=== PATIENT | female | born 1945 | race Caucasian/White ===

== ENCOUNTER 2020-05-23 15:31 | Outpatient (CLI) | payer MEDICARE, SELFPAY ==
--- NOTE | ~2020-05-23 | US_ITS ---
EXAMINATION: US venous doppler LE RT EXAM DATE: 05/23/2020 16:05 INDICATION: Right leg pain. TECHNIQUE: Multiple grayscale, color flow and Doppler images of the right lower extremity deep venous system were obtained and reviewed. There is no prior study for comparison. FINDINGS: The right common femoral, femoral and profunda veins demonstrate normal color flow, respira tory variation, augmentation and compressibility. Compressibility, color flow confirmed within the r ight popliteal, posterior tibial, peroneal, and greater saphenous veins. IMPRESSION: 1. No right lower extremity deep venous thrombosis. Reviewed, dictated and finalized at location A.
== END 2020-05-23 15:32 | disposition home or self-care (01) ==
PROVIDERS: PCP Internal Medicine; Visit Provider Physician Assistant
DX: M79.604 Pain in right leg (principal)
CPT/HCPCS: 93971

== ENCOUNTER 2020-05-29 06:39 | Outpatient (CLI) | payer MEDICARE, SELFPAY ==
--- NOTE | ~2020-05-29 | CT_ITS ---
EXAMINATION: CT brain wo/w con DATE: 05/29/2020 07:09 INDICATION: Headache TECHNIQUE: Computed tomography (CT) of the head was performed without and with 75 mL Omnipaque-350 in travenous contrast. Sagittal and coronal reconstructions were performed. The mA was adjusted accordin g to patient size. Iterative reconstruction technique was employed. The dose-length product was 1210. 67 mGy-cm. COMPARISON: None FINDINGS: No acute intracranial hemorrhage, acute infarction or abnormal extra axial fluid collection. There is minimal scattered white matter hypoattenuation consistent with chronic small vessel ischemic disease . Ventricles are normal and symmetric. No mass/mass effect. No abnormally enhancing lesions. No hemod ynamically significant stenosis in the intracranial arteries with symmetric cerebral arterial arboriz ation. The orbits, paranasal sinuses and mastoid air cells are normal. IMPRESSION: 1. No acute intracranial process or abnormally enhancing brain lesions. 2. Minimal scattered white matter hypoattenuation consistent with chronic small vessel ischemic disea se. Reviewed, dictated and finalized at location A. IMPRESSION: 1. No acute intracranial process or abnormally enhancing brain lesions. 2. Minimal scattered white matter hypoattenuation consistent with chronic small vessel ischemic disease.
[2020-05-29 07:02] LABS: Estimated Glomerular Filt Rate > 60
== END 2020-05-29 06:40 | disposition home or self-care (01) ==
PROVIDERS: PCP Internal Medicine; Visit Provider Internal Medicine
DX: R51.9 Headache, unspecified (principal); R42 Dizziness and giddiness; R90.82 White matter disease, unspecified
CPT/HCPCS: 70470; Q9967

== ENCOUNTER 2020-05-30 10:10 | Outpatient (CLI) | payer MEDICARE, SELFPAY ==
--- NOTE | 2020-05-31 12:43 | WPDHOLTEREM ---
Holter/Event Monitor Holter/Event Monitor Date of procedure: 05/30/20 Procedure Type: 24 hour holter monitor Indications: Palpitations Conclusion: 1. 24 hour holter monitor on 05/30/20. 2. Underlying rhythm is sinus rhythm. HR range 54-121 bpm; average HR 71 bpm. 3. There are 21 premature supraventricular complexes. No supraventricular tachycardia. 4. There are 14 premature ventricular complexes. No ventricular tachycardia. 5. No sinoatrial or atrioventricular blocks. No significant pauses greater than 2 seconds. 6. Patient reports symptoms of lightheadedness and shortness of breath which demonstrate sinus rhythm, 65-68 bpm.
== END 2020-05-30 10:11 | disposition home or self-care (01) ==
PROVIDERS: PCP Internal Medicine; Visit Provider Physician Assistant
DX: R00.2 Palpitations (principal)
CPT/HCPCS: 93225; 93226

== ENCOUNTER → 2022-02-05 15:15 | Outpatient (CLI) | payer MEDICARE, SELFPAY ==
--- NOTE | ~2022-02-05 | MM_ITS ---
EXAMINATION: MM screening [facility] BI w jose elias HISTORY: Screening TECHNIQUE: Craniocaudal and mediolateral oblique 3-D tomosynthesis images were obtained and synthetic 2-D images were generated. CAD analysis was submitted and interpreted. COMPARISON: Comparison to multiple prior studies sequentially, with oldest reviewed study dated 02/2014. BREAST PARENCHYMAL COMPOSITION: There are scattered areas of fibroglandular density. FINDINGS: There is no evidence of suspicious mass, calcification, or architectural distortion to sugg est malignancy in either breast. There has been no suspicious interval change. IMPRESSION: 1. No mammographic evidence of malignancy. 2. Recommend routine screening mammography in one year. BI-RADS Category 1: Negative Reviewed, dictated and finalized at location A.
== END ==
PROVIDERS: PCP Internal Medicine; Visit Provider Obstetrics & Gynecology
DX: Z12.31 Encounter for screening mammogram for malignant neoplasm of breast (principal)
CPT/HCPCS: 77063; 77067

== ENCOUNTER 2022-11-28 10:00 | Emergency (ER) | payer MEDICARE, SELFPAY ==
--- NOTE | ~2022-11-28 | CT_ITS ---
EXAMINATION: CT lumbar spine wo con DATE: 11/28/2022 11:06 INDICATION: Low back pain. TECHNIQUE: Computed tomography (CT) of the lumbar spine was performed without intravenous contrast. T he dose-length product was 449.86 mGy-cm. Automated exposure control and iterative reconstruction technique were employed. COMPARISON: None FINDINGS: The vertebral body heights are maintained. There is moderate disc narrowing at L1-2 and L5- S1. There is grade 1 degenerative spondylolisthesis at L4-5 secondary to facet hypertrophy. There is facet hypertrophy at L4-5 and L5-S1. No acute fracture or traumatic malalignment. Mild levocurvature of the lumbar spine. IMPRESSION: 1. No acute abnormality of the lumbar spine. 2: Moderate lumbar spondylosis. Reviewed, dictated and finalized at location A.
--- NOTE | ~2022-11-28 | XR_ITS ---
XR hip BI 2V w AP pelvis 11/28/2022 11:13 Indication: Low back pain Procedure: AP pelvis and 2 views each hip Comparison: No prior studies for comparison. Findings: Pelvic rings are intact. There is lower lumbar spondylosis with levocurvature. Sacral meghan en are symmetric. No acute fracture or traumatic malalignment. Impression: 1: No acute bone or joint abnormality. Reviewed, dictated and finalized at location A. Impression: 1: No acute bone or joint abnormality.
[2022-11-28 10:07] VITALS: BP 159/81; PULSE 86; RESP 16; TEMP 36.2; O2SAT 99
--- NOTE | 2022-11-28 10:16 | ED.BACK ---
HPI - Back Pain/Injury General Chief Complaint: Back Pain/Injury <Leonides Romero PA-C - Last Filed: 11/28/22 14:10> Stated Complaint: back pain <MABEL Kaur Last Filed: 11/28/22 14:10> Time Seen by Provider: 11/28/22 10:16 <MABEL Kaur Last Filed: 11/28/22 14:10> Source: patient <MABEL Kaur Last Filed: 11/28/22 14:10> Mode of arrival: ambulatory <MABEL Kaur Last Filed: 11/28/22 14:10> Limitations: no limitations <MABEL Kaur Last Filed: 11/28/22 14:10> History of Present Illness HPI Narrative: This is a 69-year-old female presents to the ED with chief complaint of low back pain after an injury that occurred 10 days ago. Patient reports that she was standing on a folding chair in her garage when it folded back and she fell down to the ground. States she landed on her back on the right side. Reports pain in the right lower back that radiates into the right lateral hip area. She has been taking ibuprofen with minimal relief. Denies fevers, chills, numbness, weakness, urinary retention or bowel incontinence. Denies saddle anesthesia. Denies head injury or LOC. Denies any further site of pain or injury. <MABEL Kaur Last Filed: 11/28/22 14:10> Related Data Home Medications: Home Medications Medication Instructions Recorded Confirmed calcium carbonate 500 mg calcium 500 mg PO DAILY 07/20/19 07/18/22 (1,250 mg) chewable tablet (Calci-Chew) ibuprofen 200 mg tablet 200 mg PO Q6H PRN 07/20/19 07/18/22 <MABEL Kaur Last Filed: 11/28/22 14:10> Allergies/Adverse Reactions: Allergies Allergy/AdvReac Type Severity Reaction Status Date / Time Penicillins Allergy Unknown Hives Verified 07/18/22 09:52 <MABEL Kaur Last Filed: 11/28/22 14:10> Review of Systems Review of Systems: CONSTITUTIONAL: Denies fever, chills, or sweats. SKIN: Denies rash or itching. MUSCULOSKELETAL: See HPI NEUROLOGIC: Denies headache, numbness, dizziness, or weakness. PSYCHIATRIC: Denies anxiety or depression. <MABEL Kaur Filed: 11/28/22 14:10> PMFSH Family History Family History: Family History Sibling Family history of blood dyscrasia Family history of lung cancer Family history of renal failure Patient's sister is Mother Patient's mother is Father Patient's father is Acute myocardial infarction <MABEL Kaur Filed: 11/28/22 14:10> Social History Social History: Social History (Updated 07/18/22 @ 09:52 by Adela Tavares MA) Smoking packs per day: 0.25 Smoking cigarettes per day: 5.0 Years smoked: 3 Smoking pack-years: 0.75 Smoking status: Former smoker Second hand tobacco smoke exposure: No Alcohol intake: current Lack of Transportation: No Lack of Food: Never True Current Housing: I Have Housing Concerned About Future Housing: No Difficulty Paying Gas/Electric Bills: No Difficulty Paying for Meds: No Currently Unemployed: No Education: High School Diploma/GED Difficulty w/ Childcare or Family Care: No <MABEL Kaur Filed: 11/28/22 14:10> Exam Narrative: GENERAL: Well-appearing, well-nourished, and in no acute distress. HEAD: Normocephalic, atraumatic. EXTREMITIES: Spine: No midline tenderness. Right paraspinal tenderness and right SI tenderness present. No bony deformities or step-offs. Negative logroll of the right hip. Negative right hip tenderness. Exam otherwise benign. Normal range of motion. No edema. Ambulatory. SKIN: Warm, dry, no rash. No bruising or wounds throughout the back, hips or abdomen. NEURO: Alert and oriented x3. No focal deficits. No saddle anesthesia present. 5 out of 5 strength and sensation. PSYCH: Normal mood and affect. <MABEL Kaur [place]
[2022-11-28 12:32] VITALS: BP 140/68; PULSE 88; RESP 16; O2SAT 98
== END 2022-11-28 12:33 | disposition home or self-care (01) ==
PROVIDERS: Emergency Provider Physician Assistant; PCP Internal Medicine
DX: M47.816 Spondylosis without myelopathy or radiculopathy, lumbar region (principal); S39.012A Strain of muscle, fascia and tendon of lower back, initial encounter; Z87.891 Personal history of nicotine dependence; W07.XXXA Fall from chair, initial encounter; Y92.008 Other place in unspecified non-institutional (private) residence as the place of occurrence of the external cause
CPT/HCPCS: 72131; 73521; 99284

== ENCOUNTER 2023-02-06 08:15 | Outpatient (CLI) | payer MEDICARE, SELFPAY ==
--- NOTE | ~2023-02-06 | US_ITS ---
Abdominal Sonogram: Real-time sonographic imaging of the abdomen was performed. Clinical History: Right upper quadrant pain Findings: The liver appears normal with no evidence of mass lesion or bile duct dilatation. Main por alexei vein demonstrates normal direction of flow. The spleen is normal in size without evidence of foca l lesion. The gallbladder is well distended, and appears normal with no evidence of gallstone or wal l thickening. The common bile duct measures 6 mm. The visualized pancreas, aorta, and IVC are unrema rkable. The right kidney measures 11.5 cm in length and the left kidney measures 11.9 cm. There is no hydronephrosis or renal calculus. Impression: Unremarkable abdominal ultrasound. Reviewed, dictated and finalized at location . Impression: Unremarkable abdominal ultrasound.
== END 2023-02-06 08:16 | disposition home or self-care (01) ==
PROVIDERS: PCP Internal Medicine; Visit Provider Internal Medicine
DX: R10.11 Right upper quadrant pain (principal)
CPT/HCPCS: 76700

== ENCOUNTER 2023-03-20 01:01 | Day surgery (SDC) | payer MEDICARE, SELFPAY ==
[2023-03-10 12:32] VITALS: BMI 22.1
[2023-03-20 06:37] VITALS: BP 132/58; PULSE 76; RESP 16; TEMP 36; O2SAT 99
[2023-03-20] MEDS: LACTATED RINGERS 1,000 ML 150 ML IV CONT (06:41)
--- NOTE | 2023-03-20 07:49 | P.PNAN_ITS ---
Anes - Initial Pre Proc Eval Procedure: Operation Date: 03/20/23 08:00 Proposed Procedures p Screening Colonoscopy - Emmanuel Coffey MD Date/Time: 03/20/23 07:49 Surgeon: Emmanuel Coffey MD Pre Op Diagnosis: neoplasm screening Patient Data Age: 77 Gender: F Height: 1.7 m Weight: 64.6 kg Last Vital Signs Temp 96.8 F L 03/20/23 06:37 Pulse 76 03/20/23 06:37 Resp 16 03/20/23 06:37 BP 132/58 L 03/20/23 06:37 Pulse Ox 99 03/20/23 06:37 O2 Del Method Room Air 03/20/23 06:37 Allergies Allergy/AdvReac Type Severity Reaction Status Date / Time Penicillins Allergy Unknown Hives Verified 03/20/23 06:36 Home Medications Medication Instructions Recorded Confirmed Type calcium carbonate 500 mg calcium 500 mg PO DAILY 07/20/19 03/20/23 History (1,250 mg) chewable tablet (Calci-Chew) ibuprofen 200 mg tablet 200 mg PO Q6H PRN Pain 07/20/19 03/20/23 History fluticasone propionate 50 2 spray intranasal DAILY #18.2 mL 08/19/21 03/20/23 Rx mcg/actuation nasal spray,suspension (Allergy Relief (fluticasone)) atorvastatin 10 mg tablet 10 mg PO DAILY #90 tabs 01/02/23 03/20/23 Rx mecobalamin (vitamin B12) 1,000 1,000 mcg PO DAILY 01/23/23 03/20/23 History mcg chewable tablet Patient hx anesthesia problems: none Family hx anesthesia problems: none Results Review: All pre-operative results and documents have been reviewed as part of the pre- operative evaluation. [facility] Family History Family History Sibling Family history of blood dyscrasia Family history of lung cancer Family history of renal failure Patient's sister is Mother Patient's mother is Father Patient's father is Acute myocardial infarction Social History Social History Smoking packs per day: 0.25 Smoking cigarettes per day: 5.0 Years smoked: 3 Smoking pack-years: 0.75 Smoking status: Former smoker Second hand tobacco smoke exposure: No Alcohol intake: current Lack of Transportation: No Lack of Food: Never True Current Housing: I Have Housing Concerned About Future Housing: No Difficulty Paying Gas/Electric Bills: No Difficulty Paying for Meds: No Currently Unemployed: No Education: High School Diploma/GED Difficulty w/ Childcare or Family Care: No Anes - Eval Final PreProcedure Day of Procedure 03/20/23 07:49 Patient weight: normal Heart: regular rate and rhythm Lungs: clear to auscultation Airway: Mallampati scale class II Neurological: alert and oriented Last oral intake: >/= 8 hours ASA classification: II Emergent: no Anesthetic plan: proceed Anesthesia type and monitoring: general GIVS and standard monitoring Results Review: All pre-operative results and documents have been reviewed as part of the pre- operative evaluation. Informed Consent: The patient's anesthetic plan and its attendant risks and benefits were discussed with the patient/family/POA. Questions were solicited and answers provided to the satisfaction of the patient/family/POA.
--- NOTE | 2023-03-20 07:51 | PM.HPGS ---
History of Present Illness History of Present Illness Consent: Risks, benefits, and alternatives have been discussed and questions answered. Patient agrees to proceed with procedure. Chief complaint: neoplasm screening Narrative: Ivanna Silverio is a 77 year old female with colon polyp years ago that required partial colectomy, last colonoscopy 5 years ago Review of Systems Constitutional: Constitutional: Denies headache(s) and Denies weakness Eyes: Eyes: Denies blurry vision ENT: Reports Normal hearing present, Denies headache(s) and Denies neck pain Cardiovascular: Cardiovascular: Denies chest pain and Denies dyspnea Respiratory: Respiratory: Denies dyspnea Gastrointestinal: Gastrointestinal: Reports no additional gastrointestinal complaints Genitourinary: Genitourinary: Denies dysuria Musculoskeletal: Musculoskeletal: Denies neck pain Integumentary/Breasts: Skin/Breast: Denies dry skin Neurologic: Reports Normal hearing present, Denies headache(s) and Denies weakness Psychiatric: Psychiatric: Denies anxiety Endocrine: Endocrine: Denies change in body appearance Hematologic/Lymphatic: Hematologic/Lymphatic: Denies easy bleeding Allergic/Immunologic: Allergic/Immunologic: Denies urticaria PMFSH Past Medical History Medical History (Updated 03/20/23 @ 07:52 by Emmanuel Coffey MD) Colon polyp Family History Family History Sibling Family history of blood dyscrasia Family history of lung cancer Family history of renal failure Patient's sister is Mother Patient's mother is Father Patient's father is Acute myocardial infarction Social History Social History Smoking packs per day: 0.25 Smoking cigarettes per day: 5.0 Years smoked: 3 Smoking pack-years: 0.75 Smoking status: Former smoker Second hand tobacco smoke exposure: No Alcohol intake: current Lack of Transportation: No Lack of Food: Never True Current Housing: I Have Housing Concerned About Future Housing: No Difficulty Paying Gas/Electric Bills: No Difficulty Paying for Meds: No Currently Unemployed: No Education: High School Diploma/GED Difficulty w/ Childcare or Family Care: No Meds Home Medications and Allergies Home Medications Medication Instructions Recorded Confirmed Type calcium carbonate 500 mg calcium 500 mg PO DAILY 07/20/19 03/20/23 History (1,250 mg) chewable tablet (Calci-Chew) ibuprofen 200 mg tablet 200 mg PO Q6H PRN Pain 07/20/19 03/20/23 History fluticasone propionate 50 2 spray intranasal DAILY #18.2 mL 08/19/21 03/20/23 Rx mcg/actuation nasal spray,suspension (Allergy Relief (fluticasone)) atorvastatin 10 mg tablet 10 mg PO DAILY #90 tabs 01/02/23 03/20/23 Rx mecobalamin (vitamin B12) 1,000 1,000 mcg PO DAILY 01/23/23 03/20/23 History mcg chewable tablet Allergies Allergy/AdvReac Type Severity Reaction Status Date / Time Penicillins Allergy Unknown Hives Verified 03/20/23 06:36 Vital Signs Vital Signs - 24 hr 03/20/23 06:37 Temperature 96.8 F L Pulse Rate 76 Respiratory Rate 16 Blood Pressure 132/58 L Pulse Oximetry 99 Oxygen Delivery Room Air Exam Const: General: comfortable and no acute distress HENMT: Face/Nose/Sinus: Normal nares present Eyes: General: appearance normal, both eyes and all related structures Neck: Neck: no JVD Resp: Auscultation: clear to auscultation bilaterally Cardio: Rate: regular rate Rhythm: regular rhythm GI: Inspection: non-distended GI Palp: Yes Soft to palpation Skin: General skin exam: normal color Neuro: General: gait normal Speech: normal speech Extrem: General: normal to inspection Psych: Mental Status: mental status grossly normal Assessment and Plan Assessment and plan (1) Colon mere
[2023-03-20 08:13] VITALS: BP 89/49; PULSE 65; RESP 15; O2SAT 99
[2023-03-20 08:23] VITALS: BP 85/43; PULSE 63; RESP 14; O2SAT 100
[2023-03-20 08:33] VITALS: BP 111/59; PULSE 70; RESP 20; O2SAT 98
== END 2023-03-20 08:41 | disposition home or self-care (01) ==
PROVIDERS: PCP Internal Medicine; Visit Provider Internal Medicine Gastroenterology
PROC: 0DJD8ZZ Inspection of Lower Intestinal Tract, Via Natural or Artificial Opening Endoscopic (ICD-10-PCS; CPT 45378; principal; 2023-03-20 08:00)
DX: Z12.11 Encounter for screening for malignant neoplasm of colon (principal); K57.30 Diverticulosis of large intestine without perforation or abscess without bleeding; Z98.0 Intestinal bypass and anastomosis status; Z90.49 Acquired absence of other specified parts of digestive tract; Z86.010 Personal history of colon polyps; Z87.891 Personal history of nicotine dependence
CPT/HCPCS: G0105; J2704; J7120

== ENCOUNTER → 2023-05-25 13:14 | Outpatient (CLI) | payer MEDICARE, SELFPAY ==
--- NOTE | ~2023-05-25 | MM_ITS ---
EXAMINATION: MM screening [facility] BI w jose elias HISTORY: Screening TECHNIQUE: Craniocaudal and mediolateral oblique 3-D tomosynthesis images were obtained and synthetic 2-D images were generated. CAD analysis was submitted and interpreted. COMPARISON: Comparison to multiple prior studies sequentially, with oldest reviewed study dated 02/2014. BREAST PARENCHYMAL COMPOSITION: There are scattered areas of fibroglandular density. FINDINGS: There are developing asymmetries in the upper outer quadrant of the left breast posteriorly . The right breast is stable without evidence for malignancy. IMPRESSION: 1. Developing left breast asymmetries. 2. Additional mammographic views and possible breast ultrasound are recommended. BI-RADS Category 0: Incomplete: Needs additional imaging evaluation. Reviewed, dictated and finalized at location A. IMPRESSION: 1. Developing left breast asymmetries. 2. Additional mammographic views and possible breast ultrasound are recommended . BI-RADS Category 0: Incomplete: Needs additional imaging evaluation.
== END ==
PROVIDERS: PCP Obstetrics & Gynecology; Visit Provider Obstetrics & Gynecology
DX: Z12.31 Encounter for screening mammogram for malignant neoplasm of breast (principal); R92.8 Other abnormal and inconclusive findings on diagnostic imaging of breast
CPT/HCPCS: 77063; 77067

== ENCOUNTER → 2023-06-18 08:12 | Outpatient (CLI) | payer MEDICARE, SELFPAY ==
--- NOTE | ~2023-06-18 | MMUS_ITS ---
EXAMINATION: MM diagnostic [facility] LT w jose elias, US breast LT limited HISTORY: Follow-up left breast asymmetries TECHNIQUE: Additional 3-D tomosynthesis images of the left breast were performed and synthetic 2-D im ages were generated. CAD analysis was submitted and interpreted. High resolution Limited left breast ultrasound was performed. COMPARISON: Comparison to multiple prior studies sequentially, with oldest reviewed study dated 02/2014. BREAST PARENCHYMAL COMPOSITION: BREAST PARENCHYMAL COMPOSITION: There are scattered areas of fibroglandular density. FINDINGS: MAMMOGRAPHIC FINDINGS: There are no suspicious masses, calcifications or architectural distortion in either breast to sugges t malignancy. ULTRASOUND: Limited left breast ultrasound: There is mildly prominent ducts at 4:00, 4 cm from the nipple. No maru picious masses in the left breast to suggest malignancy. IMPRESSION: 1. No evidence for malignancy in the left breast. 2. Routine yearly screening mammogram and regular clinical breast examination are recommended. BI-RADS Category 2: Benign finding(s). Reviewed, dictated and finalized at location A. [facility] IMPRESSION: 1. No evidence for malignancy in the left breast. 2. Routine yearly screening mammogram and regular clinical breast examination a re recommended. BI-RADS Category 2: Benign finding(s).
== END ==
PROVIDERS: PCP Internal Medicine; Visit Provider Obstetrics & Gynecology
DX: R92.8 Other abnormal and inconclusive findings on diagnostic imaging of breast (principal)
CPT/HCPCS: 76642; 77061; 77065; G0279

== ENCOUNTER 2024-01-21 08:50 | Outpatient (CLI) | payer MEDICARE, SELFPAY ==
[2024-02-16 18:40] VITALS: BMI 23.2
--- NOTE | 2024-02-16 18:40 | WPDSLEEPSTUD ---
Sleep Study Date of Study: 01/21/24 Ordering Provider: Samuel Burger APRN Interpreting Physician: Neida Kelley DO Sleep Study Type: Polysomnogram Height: 1.68 m Weight: 65.317 kg Body Mass Index: 23.2 Neck Circumference (inches): 13 Tucker: 7 Reason for Sleep Study Snoring Sleep History The patient is a 78-year-old female that had a sleep study ordered for evaluation sleep apnea. The patient occasionally awakens from sleep short of breath. She occasionally awakens at night with heartburn, belching or cough. She frequently snores and is frequently loud enough that others complain. She occasionally has trouble sleeping when she has a cold. She rarely wakes up gasping for air throughout the night. She occasionally has breathing problems at night observed by herself or others. She rarely sweats excessively at night. She occasionally has heart palpitations or irregular heartbeats during the night. She rarely falls asleep during the day and never while driving. She denies sleep paralysis and cataplexy. She denies having trouble at school or work due to sleepiness. She occasionally experiences vivid dreamlike scenes upon awakening or falling asleep. She denies feeling afraid of going to sleep. She rarely has nightmares. She occasionally remembers her dreams. She occasionally has thoughts racing through her mind. She rarely feels sad or depressed. She occasionally has anxiety. She occasionally has muscular tension. She rarely notices parts of her body jerk. She rarely kicks during the night. She rarely has crawling and aching feelings in her legs and rarely has leg pain during the night. She rarely grinds her teeth during sleep but never awakens with morning jaw pain. She is rarely bothered by pain during the day and rarely awakened by pain during the night. She rarely wakes up feeling stiff in the morning. She rarely wakes up with sore or achy muscles. She occasionally wakes up with pain in the neck, spine and other joints. She goes to bed at 10:30 p.m. on weekdays and at 11:00 p.m. on the weekends. The amount of time it takes for her to fall asleep is variable. She wakes up 2-3 times throughout the night for unknown reasons. She wakes up at 6:30 a.m. on both weekdays and weekends. She typically gets 7-8 hours of sleep per night. She does not stay in bed after waking up in the morning. She currently lives alone. She will consume caffeinated beverages within 2 hours of bedtime. She denies engaging in physical exercise before bedtime. She will read and watch television before falling asleep. She denies taking naps in the afternoon or the evening. She consumes 2 cups of caffeinated beverage per day. She quit smoking cigarettes 58 years ago. She consumes alcoholic beverages 3-4 times per week. She denies recreational drug use. [facility] Past Medical History Medical History Colon polyp Family History Family History Sibling Family history of blood dyscrasia Family history of lung cancer Family history of renal failure Patient's sister is Mother Patient's mother is Father Patient's father is Acute myocardial infarction Social History Social History Smoking packs per day: 0.25 Smoking cigarettes per day: 5.0 Years smoked: 3 Smoking pack-years: 0.75 Smoking status: Former smoker Second hand tobacco smoke exposure: No Alcohol intake: current Lack of Transportation: No Lack of Food: Never True Current Housing: I Have Housing Concerned About Future Housing: No Difficulty Paying Gas/Electric Bills: No Difficulty Paying for Meds: No Currently Unemployed: No Education: High School Diploma/GED Difficulty w/ Childcare or Family Care: No Medic
== END 2024-01-22 06:09 | disposition home or self-care (01) ==
PROVIDERS: PCP Internal Medicine; Visit Provider Nurse Practitioner Family
DX: G47.33 Obstructive sleep apnea (adult) (pediatric) (principal); R06.83 Snoring
CPT/HCPCS: 95810

== ENCOUNTER 2024-03-29 09:09 | Outpatient (CLI) | payer MEDICARE, SELFPAY ==
--- NOTE | 2024-04-22 15:43 | WPDSLEEPSTUD ---
Sleep Study Date of Study: 03/29/24 Ordering Provider: Samuel Burger APRN Interpreting Physician: Neida Kelley DO Sleep Study Type: CPAP Titration Height: 1.68 m Weight: 63.957 kg Body Mass Index: 22.7 Neck Circumference (inches): 14 [place]: 7 Reason for Sleep Study The patient had a polysomnogram on 01/21/2024 that showed an overall AHI of 6.3 with desaturation down to 78%. Sleep History The patient is a 78-year-old female that had a sleep study ordered for evaluation sleep apnea. The patient occasionally awakens from sleep short of breath. She occasionally awakens at night with heartburn, belching or cough. She frequently snores and is frequently loud enough that others complain. She occasionally has trouble sleeping when she has a cold. She rarely wakes up gasping for air throughout the night. She occasionally has breathing problems at night observed by herself or others. She rarely sweats excessively at night. She occasionally has heart palpitations or irregular heartbeats during the night. She rarely falls asleep during the day and never while driving. She denies sleep paralysis and cataplexy. She denies having trouble at school or work due to sleepiness. She occasionally experiences vivid dreamlike scenes upon awakening or falling asleep. She denies feeling afraid of going to sleep. She rarely has nightmares. She occasionally remembers her dreams. She occasionally has thoughts racing through her mind. She rarely feels sad or depressed. She occasionally has anxiety. She occasionally has muscular tension. She rarely notices parts of her body jerk. She rarely kicks during the night. She rarely has crawling and aching feelings in her legs and rarely has leg pain during the night. She rarely grinds her teeth during sleep but never awakens with morning jaw pain. She is rarely bothered by pain during the day and rarely awakened by pain during the night. She rarely wakes up feeling stiff in the morning. She rarely wakes up with sore or achy muscles. She occasionally wakes up with pain in the neck, spine and other joints. She goes to bed at 10:30 p.m. on weekdays and at 11:00 p.m. on the weekends. The amount of time it takes for her to fall asleep is variable. She wakes up 2-3 times throughout the night for unknown reasons. She wakes up at 6:30 a.m. on both weekdays and weekends. She typically gets 7-8 hours of sleep per night. She does not stay in bed after waking up in the morning. She currently lives alone. She will consume caffeinated beverages within 2 hours of bedtime. She denies engaging in physical exercise before bedtime. She will read and watch television before falling asleep. She denies taking naps in the afternoon or the evening. She consumes 2 cups of caffeinated beverage per day. She quit smoking cigarettes 58 years ago. She consumes alcoholic beverages 3-4 times per week. She denies recreational drug use. [facility] Past Medical History Medical History Colon polyp Family History Family History Sibling Family history of blood dyscrasia Family history of lung cancer Family history of renal failure Patient's sister is Mother Patient's mother is Father Patient's father is Acute myocardial infarction Social History Social History Smoking packs per day: 0.25 Smoking cigarettes per day: 5.0 Years smoked: 3 Smoking pack-years: 0.75 Smoking status: Former smoker Second hand tobacco smoke exposure: No Alcohol intake: current Lack of Transportation: No Lack of Food: Never True Current Housing: I Have Housing Concerned About Future Housing: No Difficulty Paying Gas/Electric Bills: No Difficulty Paying for Meds: No Currently Unemployed
[2024-04-23 14:48] VITALS: BMI 22.7
== END 2024-03-30 06:58 | disposition home or self-care (01) ==
LOC: ANHCSM 09:10
PROVIDERS: PCP Internal Medicine; Visit Provider Nurse Practitioner Family
DX: G47.33 Obstructive sleep apnea (adult) (pediatric) (principal)
CPT/HCPCS: 95811

== ENCOUNTER 2024-07-13 13:41 | Outpatient (CLI) | payer MEDICARE, SELFPAY | END 2024-07-13 13:42 | disposition home or self-care (01) | LOC: ANHCARD 13:42 | PROVIDERS: PCP Internal Medicine; Visit Provider Internal Medicine | DX: I49.9 Cardiac arrhythmia, unspecified (principal) | CPT/HCPCS: 93242 ==

== ENCOUNTER 2024-10-10 13:43 | Outpatient (CLI) | payer MEDICARE, SELFPAY | END 2024-10-10 13:44 | disposition home or self-care (01) | LOC: ANHAUDIO 13:44 | PROVIDERS: PCP Internal Medicine; Visit Provider Otolaryngology | DX: H90.3 Sensorineural hearing loss, bilateral (principal); J31.0 Chronic rhinitis | CPT/HCPCS: 92557; 92567 ==

== ENCOUNTER 2024-11-16 13:29 | Outpatient (CLI) | payer MEDICARE, SELFPAY ==
--- NOTE | ~2024-11-16 | MM_ITS ---
EXAMINATION: MM screening anast[facility] BI w jose elias HISTORY: Screening TECHNIQUE: Craniocaudal and mediolateral oblique 3-D tomosynthesis images were obtained and synthetic 2-D images were generated. CAD analysis was submitted and interpreted. COMPARISON: Comparison to multiple prior studies sequentially, with oldest reviewed study dated 10/30. BREAST PARENCHYMAL COMPOSITION: Not dense: There are scattered areas of fibroglandular density. FINDINGS: There is no evidence of suspicious mass, calcification, or architectural distortion to sugg est malignancy in either breast. There has been no suspicious interval change. IMPRESSION: 1. No mammographic evidence of malignancy. 2. Recommend routine screening mammography in one year. BI-RADS Category 1: Negative Reviewed, dictated and finalized at location A.
== END 2024-11-16 13:30 | disposition home or self-care (01) ==
LOC: MICIMG 13:30
PROVIDERS: PCP Internal Medicine; Visit Provider Obstetrics & Gynecology
DX: Z12.31 Encounter for screening mammogram for malignant neoplasm of breast (principal)
CPT/HCPCS: 77063; 77067